=== PATIENT | male | born 1955 | race African-American/Black ===

== ENCOUNTER 2017-03-25 17:17 | Emergency (ER) | payer OTHER ==
[2017-03-25 17:38] VITALS: BMI 32.8
--- NOTE | 2017-03-25 17:55 | PDOC ---
History of Present Illness - General Chief Complaint: Weakness Stated Complaint: FATIGUE, DIZZINESS Time Seen by Provider: 03/25/17 17:55 - History of Present Illness Initial Comments: 62 year old previously healthy male presenting with lightheadedness and nausea for the past two days. He worked an 18 hour shift three days prior and returned to work 12 hours later during which he felt lightheaded and nauseous. He admits to two episodes of non-bilious, non-bloody vomiting over this period of time. He denies fevers, chills, constipation, or other symptoms. He has also had some nasal congestion and cold like symptoms over the past week. He mhas also had a very poor appetite for fluids and solids over the past few days because of his nausea. His symptoms actually improved today but his sister wanted him to come in for evaluation regardless. He denies a vertigo like symptoms but only admits to lightheadedness and unsteadiness without syncope, chest pain, headache, palpitations, visual symptoms, or other concerning symptoms. 03/25/17 21:07 Past History - Past Medical History Allergies/Adverse Reactions: Allergies Allergy/AdvReac Type Severity Reaction Status Date / Time No Known Drug Allergies Allergy Verified 03/25/17 17:35 Home Medications: Ambulatory Orders NK [No Known Home Medication] 03/25/17 Anemia: No Asthma: No Cancer: No Cardiac Disorders: No CVA: No COPD: No CHF: No Dementia: No Diabetes: No GI Disorders: No Disorders: No HTN: Yes Hypercholesterolemia: No Liver Disease: No Seizures: No Thyroid Disease: No - Surgical History Abdominal Surgery: No Appendectomy: No Cardiac Surgery: No Lung Surgery: No Neurologic Surgery: No Orthopedic Surgery: Yes (LEFT ANH; ARTHROSCOPY) - Psycho/Social/Smoking Cessation Hx Suicidal Ideation: No Smoking History: Former smoker Have you smoked in the past 12 months: No Information on smoking cessation initiated: No Hx Alcohol Use: Yes (RARELY) Drug/Substance Use Hx: No Substance Use Type: Alcohol Hx Substance Use Treatment: No Review of Systems - Review of Systems Constitutional: No: Chills, Diaphoresis, Fever HEENTM: No: Blurred Vision, Recent change in vision, Double Vision Respiratory: No: Cough, Shortness of Breath Cardiac (ROS): No: Chest Pain, Edema ABD/GI: Yes: Nausea, Poor Appetite, Poor Fluid Intake, Vomiting. No: Diarrhea *Physical Exam - Vital Signs Last Vital Signs Temp Pulse Resp BP Pulse Ox 98.5 F 69 19 126/93 100 03/25/17 17:35 03/25/17 17:35 03/25/17 17:35 03/25/17 17:35 03/25/17 17:35 - Physical Exam General Appearance: Yes: Appropriately Dressed. No: Apparent Distress HEENT: positive: EOMI, CUAUHTEMOC, Normal ENT Inspection, Normal Voice Neck: positive: Trachea midline, Normal Thyroid, Supple. negative: Tender, Rigid Respiratory/Chest: positive: Lungs Clear, Normal Breath Sounds. negative: Chest Tender, Respiratory Distress Cardiovascular: positive: Regular Rhythm, Regular Rate, S1, S2. negative: Edema , JVD, Murmur Gastrointestinal/Abdominal: positive: Normal Bowel Sounds, Flat, Soft. negative : Tender, Organomegaly Musculoskeletal: positive: Normal Inspection Extremity: positive: Normal Inspection, Normal Range of Motion Integumentary: positive: Normal Color, Dry, Warm Neurologic: positive: Fully Oriented, Alert, Normal Mood/Affect, Motor Strength 11/20 ED Treatment Course - LABORATORY CBC & Chemistry Diagram: 03/25/17 19:45 03/25/17 19:45 Medical Decision Making - Medical Decision Making 62 year old male with no PMH presenting with lightheadedness in the setting of previous cold like symptoms, lack of sleep (due to work), and low PO intake for multiple days. There is low suspicion for any concerning pathology given recent illness and low PO intake provide a good explanation for his lightheadedness and quick resolution. He denies chest pain and he has no prominent cardiac risk factors. Will draw CBC and CMP to be cautious given his age. 03/25/17 21:23 Labs returned WNL with the exception of hyperglycemia to 144 and patient feeling better after 1 L PO water intake. Will discharge home with return precautions and follow up with PMD. *DC/Admit/Observation/Transfer Diagnosis at time of Disposition: Viral syndrome, Light-headed feeling - Discharge Dispostion Disposition: HOME - Referrals Referrals: Bryan Moreno MD [Primary Care Provider] - - Patient Instructions Printed Discharge Instructions: DI for Dizziness-Nonvertigo Additional Instructions: Please make an appointment to see your PMD next week. Please have your glucose repeated. Please drink plenty of water. Please return to the ED with any further concerns. - Post Discharge Activity Work/School Note: Back to Work
[2017-03-25 19:08] VITALS: BP 129/90; PULSE 71; TEMP 98.1
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
[2017-03-25] MEDS ORDERED: ONDANSETRON *ODT* 4 MG TABLET SL ONE (19:51)
[2017-03-25 19:55] LABS: BASOPHIL 1.1 % (0-2.0); EOSINOPHIL 2.8 % (0-4.5); MCH 28.8 pg (25.7-33.7); MCHC 33.2 g/dl (32.0-35.9); MEAN CELL VOLUME 86.9 fl (80-96); MEAN PLT VOLUME 9.8 fl (7.5-11.1); NEUTROPHILS 57.5 % (42.8-82.8); PLATELET COUNT 371 K/MM3 (134-434); WHITE BLOOD COUNT 8.3 K/mm3 (4.0-10.0)
[2017-03-25] MEDS ORDERED: ONDANSETRON *ODT* 4 MG TABLET ONE (20:00)
[2017-03-25 20:40] LABS: ALK PHOS 95 U/L (45-117); ANION GAP 8 (8-16); BILIRUBIN,TOTAL 0.5 mg/dL (0.2-1.0); CALCIUM 9.8 mg/dL (8.5-10.1); CO2 27 mmol/L (21-32); CREATININE 1.2 mg/dL (0.7-1.3); GLUCOSE,RANDOM 144 mg/dL (74-106); SGOT/AST 43 U/L (15-37); SGPT/ALT 49 U/L (12-78); TOT PROT 8.1 g/dl (6.4-8.2)
[2017-03-25 22:42] LABS: PLATELET COMMENT2 NO CLUMPING NOTED
--- NOTE | 2017-03-26 09:01 | EKG ---
Test Reason : Blood Pressure : / mmHG Vent. Rate : 060 BPM Atrial Rate : 060 BPM P-R Int : 214 ms QRS Dur : 086 ms QT Int : 418 ms P-R-T Axes : 058 033 050 degrees QTc Int : 418 ms SINUS RHYTHM WITH 1ST DEGREE A-V BLOCK WHEN COMPARED WITH ECG OF 12-FEB-2015 09:58, NO SIGNIFICANT CHANGE WAS FOUND Confirmed by RAUL POTTS MD ([id number]) on 03/26/2017 9:00:47 AM Referred By: Confirmed By:RAUL POTTS MD
== END 2017-03-25 21:16 | disposition home or self-care (01) ==
LOC: JER 17:17
DX: R42 Dizziness and giddiness (principal); I10 Essential (primary) hypertension; R73.9 Hyperglycemia, unspecified; Z87.891 Personal history of nicotine dependence
CPT/HCPCS: 36415; 80053; 85025; 93005; 93010; 99284-25

== ENCOUNTER 2017-03-29 13:26 | Emergency (ER) | payer OTHER ==
[2017-03-29 13:40] VITALS: TEMP 98.3; BMI 32.8
--- NOTE | 2017-03-29 15:29 | PDOC ---
History of Present Illness - General History Source: Patient Exam Limitations: No Limitations <Izabela Berger - Last Filed: 03/29/17 15:26> - General History Source: Patient Exam Limitations: No Limitations - History of Present Illness Initial Comments: 03/29/17 16:01 62 yo M with no PMHx who presents to the ED with headache and vertiginous like symptoms. Patient states his lightheadedness worsens when standing and walking. Patient reports multiple waves of nausea and episodes of vomiting (nonbilious, nonbloody). Patient was seen in the ED 4 days ago for the same complaints however was discharged after his symptoms resolved. <Karlene Jean Baptiste - Last Filed: 03/29/17 16:04> - General Chief Complaint: Lightheaded Stated Complaint: NAUSEA/VOMITING, REVISIT Past History - Past Medical History Anemia: No Asthma: No Cancer: No Cardiac Disorders: No CVA: No COPD: No CHF: No Dementia: No Diabetes: No GI Disorders: No Disorders: No HTN: Yes Hypercholesterolemia: No Liver Disease: No Seizures: No Thyroid Disease: No - Surgical History Abdominal Surgery: No Appendectomy: No Cardiac Surgery: No Lung Surgery: No Neurologic Surgery: No Orthopedic Surgery: Yes (LEFT ANH; ARTHROSCOPY) - Psycho/Social/Smoking Cessation Hx Suicidal Ideation: No Smoking History: Never smoked Have you smoked in the past 12 months: No Information on smoking cessation initiated: No Hx Alcohol Use: Yes (RARELY) Drug/Substance Use Hx: No Substance Use Type: Alcohol Hx Substance Use Treatment: No <Izabela Berger - Last Filed: 03/29/17 15:26> <Karlene Jean Baptiste - Last Filed: 03/29/17 16:04> - Past Medical History Allergies/Adverse Reactions: Allergies Allergy/AdvReac Type Severity Reaction Status Date / Time No Known Drug Allergies Allergy Verified 03/29/17 13:40 Home Medications: Ambulatory Orders NK [No Known Home Medication] 03/25/17 Review of Systems - Review of Systems Able to Perform ROS?: Yes Comments:: 03/29/17 16:01 GENERAL/CONSTITUTIONAL: No fever or chills. No weakness. HEAD, EYES, EARS, NOSE AND THROAT: No change in vision. No ear pain or discharge. No sore throat. GASTROINTESTINAL: + nausea, vomiting. No diarrhea or constipation. GENITOURINARY: No dysuria, frequency, or change in urination. CARDIOVASCULAR: No chest pain or shortness of breath. RESPIRATORY: No cough, wheezing, or hemoptysis. MUSCULOSKELETAL: No joint or muscle swelling or pain. No neck or back pain. SKIN: No rash NEUROLOGIC: +vertigo. + headache. No loss of consciousness, or change in strength/sensation. ENDOCRINE: No increased thirst. No abnormal weight change. HEMATOLOGIC/LYMPHATIC: No anemia, easy bleeding, or history of blood clots. ALLERGIC/IMMUNOLOGIC: No hives or skin allergy. <Karlene Jean Baptiste - Last Filed: 03/29/17 16:04> *Physical Exam - Vital Signs Last Vital Signs Temp Pulse Resp BP Pulse Ox 98.3 F 63 18 131/93 100 03/29/17 13:32 03/29/17 13:32 03/29/17 13:32 03/29/17 13:32 03/29/17 13:32 <Izabela Berger - Last Filed: 03/29/17 15:26> - Vital Signs Last Vital Signs Temp Pulse Resp BP Pulse Ox 98.3 F 63 18 131/93 100 03/29/17 13:32 03/29/17 13:32 03/29/17 13:32 03/29/17 13:32 03/29/17 13:32 - Physical Exam Comments: 03/29/17 16:02 GENERAL: Awake, alert, and fully oriented, in no acute distress HEAD: No signs of trauma EYES: PERRLA, EOMI, sclera anicteric, conjunctiva clear ENT: Auricles normal inspection, nares patent, Moist mucosa NECK: Normal ROM, supple, no lymphadenopathy, JVD, or masses LUNGS: Breath sounds equal, clear to auscultation bilaterally. No wheezes, and no crackles HEART: Regular rate and rhythm, normal S1 and S2, no murmurs, rubs or gallops ABDOMEN: Soft, nontender, normoactive bowel sounds. No guarding, no rebound. No masses EXTREMITIES: Normal range of motion, no edema. No clubbing or cyanosis. No cords, erythema, or tenderness NEUROLOGICAL: Alert, awake, appropriate. Cranial nerves 2-12 intact. No deficits to light touch and temperature in face, upper extremities and lower extremities. No motor deficits in the in face, upper extremities and lower extremities. Normoreflexic in the upper and lower extremities. Normal speech. Toes are downgoing bilaterally. Gait is unsteady. +Angel-hallpike o the L with horizontal nystagmus. SKIN: Warm, Dry, normal turgor, no rashes or lesions noted. <Karlene Jean Baptiste - Last Filed: 03/29/17 16:04> Medical Decision Making - Medical Decision Making 03/29/17 15:27 62 yo male with no mhx here wtih c/o headache. and vertigo. started 4 days ago. does feel lightheaded with some vertigo component. feels unsteady, has had assoc n/v today. no diarreha. no tinnitus. no sick contacts. no travel. was seen in ed 4 days go, had routine blood work checked and dc home. no focal weakness. no speech changes. on exam awake alert lungs clear heart rrr nomrg. abd soft nontender. nuero alert oriented x 3 5/5 all four ext. finger to nose normal gait normal neg romberg. pos angel hallpike to left horiz nystagmus. plan vertigo. will tx with meclizine, zofran fluids. ct head. reassess <Izabela Berger - Last Filed: 03/29/17 15:26> *DC/Admit/Observation/Transfer <Izabela Berger - Last Filed: 03/29/17 15:26> - Attestations Scribe Attestion: 03/29/17 16:03 Documentation prepared by Karlene Jean Baptiste, acting as emergency medical technician basic for Izabela Berger MD <Karlene Jean Baptiste - Last Filed: 03/29/17 16:04> - Referrals Referrals: Bryan Moreno MD [Primary Care Provider] -
[2017-03-29] MEDS ORDERED: MECLIZINE HCL 25 MG TABLET (FP) PO ONE (15:45)
[2017-03-29] MEDS ORDERED: ONDANSETRON 4 MG/2 ML VIAL IVPUSH ONE (15:45)
[2017-03-29] MEDS ORDERED: SODIUM CHLORIDE 0.9% 1000 ML INFUS.BAG IV ONE (15:46)
[2017-03-29] MEDS ORDERED: ONDANSETRON 4 MG/2 ML VIAL ONE (15:53)
[2017-03-29] MEDS ORDERED: MECLIZINE HCL 25 MG TABLET (FP) ONE (15:53)
[2017-03-29 16:38] LABS: BASOPHIL 1.4 % (0-2.0); EOSINOPHIL 0.9 % (0-4.5); MCH 29.3 pg (25.7-33.7); MCHC 33.7 g/dl (32.0-35.9); MEAN CELL VOLUME 86.8 fl (80-96); MEAN PLT VOLUME 9.7 fl (7.5-11.1); NEUTROPHILS 65.6 % (42.8-82.8); RDW 12.9 % (11.9-15.9); WHITE BLOOD COUNT 7.3 K/mm3 (4.0-10.0)
[2017-03-29 17:19] LABS: ALK PHOS 89 U/L (45-117); BILIRUBIN,TOTAL 0.8 mg/dL (0.2-1.0); CREATININE 1.2 mg/dL (0.7-1.3); SGPT/ALT 52 U/L (12-78); TOT PROT 8.4 g/dl (6.4-8.2)
[2017-03-29] MEDS ORDERED: METOCLOPRAMIDE HCL INJECTION 10 MG/2 ML VIAL ONE (17:37)
[2017-03-29] MEDS ORDERED: METOCLOPRAMIDE HCL INJECTION 10 MG/2 ML VIAL IVPB ONE (17:47)
[2017-03-29 18:07] VITALS: BP 128/70; PULSE 54
[2017-03-29 18:10] LABS: PLATELET COUNT 361 K/MM3 (134-434)
[2017-03-29 18:13] LABS: ALBUMIN 4.2 g/dl (3.4-5.0); ANION GAP 11 (8-16); CALCIUM 10.5 mg/dL (8.5-10.1); CO2 25 mmol/L (21-32); GLUCOSE,RANDOM 105 mg/dL (74-106); SGOT/AST 40 U/L (15-37)
--- NOTE | 2017-03-29 19:41 | PDOC ---
*Physical Exam - Vital Signs Last Vital Signs Temp Pulse Resp BP Pulse Ox 98.3 F 54 L 18 128/70 98 03/29/17 13:32 03/29/17 17:32 03/29/17 13:32 03/29/17 17:32 03/29/17 17:32 ED Treatment Course - LABORATORY CBC & Chemistry Diagram: 03/29/17 16:12 03/29/17 16:12 - ADDITIONAL ORDERS Additional order review: Laboratory Results 03/29/17 16:12 Sodium 136 Potassium 4.9 Chloride 100 Carbon Dioxide 25 Anion Gap 11 BUN 15 Creatinine 1.2 Creat Clearance w eGFR > 60 Random Glucose 105 D Calcium 10.5 H Total Bilirubin 0.8 D AST 40 H ALT 52 Alkaline Phosphatase 89 Total Protein 8.4 H Albumin 4.2 Lipase 112 03/29/17 16:12 RBC 5.56 MCV 86.8 MCHC 33.7 RDW 12.9 MPV 9.7 Neutrophils % 65.6 Lymphocytes % 23.7 D Monocytes % 8.4 Eosinophils % 0.9 Basophils % 1.4 - Medications Given in the ED: ED Medications Discontinued Medications Generic Name Dose Route Start Last Admin Trade Name Freq PRN Reason Stop Dose Admin Diphenhydramine HCl 25 mg 03/29/17 17:47 03/29/17 17:35 Benadryl Injection - IVPB 03/29/17 17:48 25 mg ONCE ONE Administration Meclizine HCl 25 mg 03/29/17 15:45 03/29/17 16:10 Antivert - PO 03/29/17 15:46 25 mg ONCE ONE Administration Metoclopramide HCl 10 mg 03/29/17 17:47 03/29/17 17:35 Reglan Injection - IVPB 03/29/17 17:48 10 mg ONCE ONE Administration Ondansetron HCl 4 mg 03/29/17 15:45 03/29/17 16:35 Zofran Injection IVPUSH 03/29/17 15:46 4 mg ONCE ONE Administration Sodium Chloride 1,000 ml 03/29/17 15:46 03/29/17 16:30 Normal Saline - IV 03/29/17 15:47 1,000 ml ONCE ONE Administration Medical Decision Making - Medical Decision Making 03/29/17 19:38 62-year-old male presents because of vertigo, associated with some nausea and vomiting. CAT scan of the head did not show any acute bleed, no edema, no mass. 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 Radiologist said it could be interpreted also as a nonspecifically gliosis and possibly a cystic lesion Patient is afebrile. Labs reviewed and they are unremarkable. He did receive IV fluids, Zofran and meclizine. He feels much better plan-Discharge home and we'll prescribe Zofran and meclizine to his pharmacy. I explained to him that he should follow-up with Dr. Moreno to further pursue an MRI to further explore the findings of the CT. He has no gross focal neural deficits at this time IMP vertigo *DC/Admit/Observation/Transfer Diagnosis at time of Disposition: Vertigo - Discharge Dispostion Disposition: HOME Condition at time of disposition: Stable - Prescriptions Prescriptions: Meclizine HCl [Antivert -] 25 mg PO QID PRN #21 tablet PRN Reason: Vertigo Ondansetron [Zofran Odt -] 4 mg SL TID PRN #12 od.tablet PRN Reason: Nausea And/Or Vomiting - Referrals Referrals: Bryan Moreno MD [Primary Care Provider] - - Patient Instructions Printed Discharge Instructions: DI for Vertigo Additional Instructions: please picking supervisor your medications at your pharmacy Followup with Dr Moreno Return for any worsening symptoms - Post Discharge Activity
== END 2017-03-29 20:29 | disposition home or self-care (01) ==
LOC: JER 13:26
PROC: 3E033GC Introduction of Other Therapeutic Substance into Peripheral Vein, Percutaneous Approach (ICD-10-PCS; principal; 2017-03-29)
PROC: 3E033GC Introduction of Other Therapeutic Substance into Peripheral Vein, Percutaneous Approach (ICD-10-PCS; 2017-03-29)
PROC: 3E033GC Introduction of Other Therapeutic Substance into Peripheral Vein, Percutaneous Approach (ICD-10-PCS; 2017-03-29)
DX: R42 Dizziness and giddiness (principal)
CPT/HCPCS: 36415; 70450-TC; 80053; 83690; 85025; 99282-25

== ENCOUNTER 2017-11-25 15:31 | Emergency (ER) | payer OTHER ==
[2017-11-25 15:41] VITALS: BMI 30.9
--- NOTE | 2017-11-25 16:07 | PDOC ---
Attending Attestation - Resident Resident Name: Joe Duran - ED Attending Attestation I have performed the following: I have examined & evaluated the patient, The case was reviewed & discussed with the resident, I agree w/resident's findings & plan, Exceptions are as noted - Medical Decision Making 11/25/17 16:07 I, Dr. Maru Christianson, DO, attest that this document has been prepared under my direction and personally reviewed by me in its entirety. I further attest, that it accurately reflects all work, treatment, procedures and medical decision -making performed by me. 11/25/17 16:48 62yo male with 25lb wt loss and painless new onset of jaundice -outpt ultrasound shows 3cm mass in head of pancreas -tbili 7 on outpt labs -intra and extrahepatic ductal dilatation -resident discussed the case with Dr. Moreno office - [employer] who discussed the case with Dr. Clemente and Dr. Vo who is trying to arrange for direct admission to [facility] 11/25/17 17:01 the patient also received a call that from Dr. Moreno office that he needs to be transferred to [facility] pt agrees to the transfer 11/25/17 17:01 call placed to [facility] transfer center pt accepted in transfer and eval by Dr. Vo to the ED under Dr. Steven 11/25/17 17:10 Pt has signed the transfer consent <Maru Christianson - Last Filed: 11/25/17 17:10> - HPI HPI: 11/25/17 17:37 The patient is a 62 year old male with a significant past medical history of HTN who presents to the emergency department for evaluation of jaundice symptoms and mass on pancreas. The patient reports being seen at the [facility] and his PCP for evaluation of yellow colored eyes and 25lb weight loss. The patient was referred to the ED from Dr. Moreno's office for further evaluation of imaging report revealing enlarged liver, dilation of biliary ducts, and growth of pancreas obstructing flow. The patient reports associated symptom of diarrhea described as loose stool, nichols in color. The patient denies chest pain, epigastric pain, shortness of breath, headache, and dizziness. Denies fevers, chills, nausea, vomiting, and constipation. Denies dysuria, frequency, urgency, and hematuria. Allergies: NKDA Past surgical history: Patient denies. Social history: Reported alcohol use. No reported cigarette or drug use. PCP: Dr. Bryan Moreno ([phone]) - Physicial Exam PE: Constitutional: (+)Jaundiced. Awake, alert, oriented. No acute distress. Head: Normocephalic. Atraumatic Eyes: (+)Icterus on eyes, sclera icteric.PERRL. EOMI. ENT: Mucous membranes are moist and intact. Posterior pharynx without exudates or erythema. Uvula midline. Neck: Supple. Full ROM. No lymphadenopathy. Cardiovascular: Regular rate. Regular rhythm. S1, S2 regular. Distal pulses are 2+ and symmetric. Pulmonary/Chest: No evidence of respiratory distress. Clear to auscultation bilaterally No wheezing, rales or rhonchi. Abdominal: (+)Palpable liver under ribcage. Soft and non-distended. There is no tenderness. No rebound, guarding or rigidity. Good bowel sounds. Back: No CVA tenderness. Musculoskeletal: No edema. No cyanosis. No clubbing. Full range of motion in all extremities. Nocalf tenderness. Radial/pedal pulses are intact and 2+ bilaterally Skin: Skin is warm and dry. No petechiae. No purpura. Neurological: Alert and oriented to person, place, and time. Cranial nerves II -XII are grossly intact. Normal speech. Strength is grossly symmetric. No sensory deficits. Psychiatric: Good eye contact. Normal interaction, affect and behavior. - Medical Decision Making Case discussed with Dr. Moreno at 16:29. Case discussed with Dr. Susanna Vo at 16:55. Patient is being accepted to [facility] ED. <Rex Degroot - Last Filed: 11/25/17 17:39> Discharge Disposition - Transfer to Acute Care Facility Receiving Facility: [facility] Accepting Physician:: Dr. Steven in the ED and Dr. Vo from Hepatology <Maru Christianson - Last Filed: 11/25/17 17:10> <Rex Degroot - Last Filed: 11/25/17 17:39> - Diagnosis Mass of pancreas - Discharge Dispostion Disposition: TRANSFER ACUTE CARE/OTHER HOSP - Referrals Referrals: Bryan Moreno MD [Primary Care Provider] - - Patient Instructions - Post Discharge Activity Attestations - Attestations Documentation prepared by Rex Degroot, acting as dental assistant medical assistant for Maru Christianson DO. <Rex Degroot - Last Filed: 11/25/17 17:39>
--- NOTE | 2017-11-25 16:09 | PDOC ---
History of Present Illness - General Chief Complaint: Revisit, Lab Variance Stated Complaint: ADMIT, LAB VARIANCE (PCP SENT) Time Seen by Provider: 11/25/17 15:36 - History of Present Illness Initial Comments: Patient is a 62 year old male, with a significant past medical history of HTN, who presents to the emergency department with worsening jaundice, pruritus, and newly identified pancreatic mass on imaging. Pt was sent from Dr. Moreno's office due to above noted symptoms and newly identified pancreatic mass on abdominal U/S. Pt was sent to ED for GI work-up and potential transfer to [facility]. After pt left office, [employer] Bharat Anderson at Dr. Moreno's office spoke with Dr. Clemente (GI) who had seen the pt in the past and recommended direct transfer to [facility] for further work-up and likely surgical intervention. Pt with painless worsening jaundice and pruritus since early October, in addition to 25 weight loss and complete hair loss. Pt denies chest pain, shortness of breath, headache or dizziness. Denies fever, chills, nausea, vomiting and constipation. Denies dysuria, frequency, urgency and hematuria. Pt denies any recent alcohol use, trauma, sick contacts, travel, IVDU, hx of GI conditions. Endorses multiple weeks of loose, yellow stool, with no abdominal pain, melena, hematochezia. Allergies: none Past surgical history: L Valdemar of Knee Social History: Former smoker, drug use. Social drinker PMD: Dr. Moreno 11/25/17 16:04 Past History - Past Medical History Allergies/Adverse Reactions: Allergies Allergy/AdvReac Type Severity Reaction Status Date / Time No Known Drug Allergies Allergy Verified 11/25/17 15:40 Home Medications: Ambulatory Orders Meclizine HCl [Antivert -] 25 mg PO QID PRN #21 tablet 03/29/17 Ondansetron [Zofran Odt -] 4 mg SL TID PRN #12 od.tablet 03/29/17 Anemia: No Asthma: No Cancer: No Cardiac Disorders: No CVA: No COPD: No CHF: No Dementia: No Diabetes: No GI Disorders: No Disorders: No HTN: Yes Hypercholesterolemia: No Liver Disease: No Seizures: No Thyroid Disease: No - Surgical History Abdominal Surgery: No Appendectomy: No Cardiac Surgery: No Lung Surgery: No Neurologic Surgery: No Orthopedic Surgery: Yes (LEFT VALDEMAR; ARTHROSCOPY) - Suicide/Smoking/Psychosocial Hx Smoking History: Never smoked Have you smoked in the past 12 months: No Information on smoking cessation initiated: No Hx Alcohol Use: No Drug/Substance Use Hx: No Substance Use Type: Alcohol Hx Substance Use Treatment: No Review of Systems - Review of Systems Comments:: GENERAL/CONSTITUTIONAL: No fever or chills. No weakness. 25 lb weight loss over last month. HEAD, EYES, EARS, NOSE AND THROAT: No change in vision. No ear pain or discharge. No sore throat. CARDIOVASCULAR: No chest pain or shortness of breath RESPIRATORY: No cough, wheezing, or hemoptysis. GASTROINTESTINAL: +Diarrhea, pruritus, worsening jaundice. No nausea, vomiting, or constipation. GENITOURINARY: No dysuria, frequency, or change in urination. MUSCULOSKELETAL: No joint or muscle swelling or pain. No neck or back pain. SKIN: No rash NEUROLOGIC: No headache, vertigo, loss of consciousness, or change in strength/ sensation. ENDOCRINE: No increased thirst. No abnormal weight change HEMATOLOGIC/LYMPHATIC: No anemia, easy bleeding, or history of blood clots. ALLERGIC/IMMUNOLOGIC: No hives or skin allergy. 11/25/17 16:04 *Physical Exam - Vital Signs Last Vital Signs Temp Pulse Resp BP Pulse Ox 98.8 F 78 18 127/80 100 11/25/17 15:38 11/25/17 15:38 11/25/17 15:38 11/25/17 15:38 11/25/17 15:38 - Physical Exam Comments: GENERAL: Elderly man, Awake, alert, and fully oriented, in no acute distress HEAD: No signs of trauma, normocephalic, atraumatic EYES: Sclera icteric. PERRLA, EOMI, conjunctiva clear ENT: Palatal, sublingual jaundice. Auricles normal inspection, hearing grossly normal, nares patent, oropharynx clear without exudates. Moist mucosa NECK: Normal ROM, supple, no lymphadenopathy, JVD, or masses LUNGS: No distress, speaks full sentences, clear to auscultation bilaterally HEART: Regular rate and rhythm, normal S1 and S2, no murmurs, rubs or gallops, peripheral pulses normal and equal bilaterally. ABDOMEN: RUQ fullness, nontender to palpation. normoactive bowel sounds. No guarding, no rebound. negative fluid wave. No CVA tenderness. EXTREMITIES : Normal inspection, Normal range of motion, no edema. No clubbing or cyanosis. NEUROLOGICAL: Cranial nerves II through XII grossly intact. Normal speech, normal gait, no focal sensorimotor deficits SKIN: Warm, Dry, normal turgor, no rashes or lesions noted 11/25/17 16:04 Medical Decision Making - Medical Decision Making 62 yo man with one month of worsening jaundice, pruritus and worsening T Bili ( 4 in October, ~7 on repeat labs) in setting of newly diagnosed suspicious pancreatic mass. Spoke with Surgeon Dr. Vo at [facility] who has already been appraised of the case and will accept patient to surgical service for further evaluation and likely surgical intervention. Call placed to [facility] ED, Dr. Christianson spoke with ED attending Dr. Steven who agreed to ED to ED transfer. Pt will be transfer to [facility] this PM, will only require BLS in transit. VSS, no pain , ready for transfer currently awaiting transportation. 11/25/17 17:35 *DC/Admit/Observation/Transfer Diagnosis at time of Disposition: Mass of pancreas - Discharge Dispostion Disposition: TRANSFER ACUTE CARE/OTHER HOSP Condition at time of disposition: Good Decision to Admit order: No - Referrals Referrals: Bryan Moreno MD [Primary Care Provider] - 1 week - Patient Instructions - Post Discharge Activity - Transfer to Acute Care Facility Receiving Facility: [facility] comment: Pt is stable, in NAD. Admitting ED attending Dr. Steven aware, accepted pt for transfer. Awaiting transportation. Will be seen by Dr. Susanna Vo at [facility] for further evaluation of pancreatic mass and possible surgical intervention. 11/25/17 17:40
[2017-11-25 18:12] VITALS: BP 146/90; PULSE 65
[2017-11-25 18:26] VITALS: TEMP 98.5
== END 2017-11-25 18:15 | disposition short-term general hospital (02) ==
LOC: JER 15:31
DX: K86.89 Other specified diseases of pancreas (principal); R17 Unspecified jaundice; I10 Essential (primary) hypertension; L65.9 Nonscarring hair loss, unspecified; R63.4 Abnormal weight loss; Z68.31 Body mass index [BMI] 31.0-31.9, adult
CPT/HCPCS: 99283-25

== ENCOUNTER 2017-12-05 18:08 | Emergency (ER) | payer OTHER ==
[2017-12-05 18:20] VITALS: BMI 31.4
[2017-12-05] MEDS ORDERED: morphine SULFATE 4 MG/ML VIAL ONE ×2 (18:47→22:39)
[2017-12-05] MEDS ORDERED: ONDANSETRON 4 MG/2 ML VIAL ONE (18:47)
[2017-12-05] MEDS ORDERED: morphine CARPU-JECT 4 MG/1 ML DISP.SYRIN IVPUSH ONE ×2 (19:03→22:21)
[2017-12-05] MEDS ORDERED: ONDANSETRON 4 MG/2 ML VIAL IVPUSH ONE (19:04)
[2017-12-05 19:27] LABS: BASO % 0.4 % (0-2.0); EOS % 0.2 % (0-4.5); LYMPH % 5.6 % (8-40); MCH 28.2 pg (25.7-33.7); MCHC 32.5 g/dl (32.0-35.9); MEAN CELL VOLUME 86.9 fl (80-96); MEAN PLT VOLUME 11.1 fl (7.5-11.1); NEUT % 88.8 % (42.8-82.8); RDW 13.4 % (11.9-15.9); WHITE BLOOD COUNT 16.4 K/mm3 (4.0-10.0)
[2017-12-05 19:39] LABS: INR 1.3 (0.82-1.09); PROTHROMBIN TIME (PATIENT) 14.7 SEC (9.7-13.0)
[2017-12-05 19:41] LABS: ACTIVATED PTT 36.9 SECONDS (26.9-34.4)
[2017-12-05 19:44] LABS: PLATELET COUNT 554 K/MM3 (134-434); PLATELET ESTIMATE INCREASED
[2017-12-05] MEDS ORDERED: PIPERACILLIN/TAZOB 4.5 GM 4.5 GM in DEXTROSE 5%-WATER - 100 ML IVPB ONE (19:46)
--- NOTE | 2017-12-05 19:46 | PDOC ---
History of Present Illness <Sole Kincaid - Last Filed: 12/05/17 20:26> - History of Present Illness Initial Comments: 12/05/17 20:59 The patient is a 62 year old male, with a significant past medical history of HTN and a pancreatic mass (head of the pancreas), who presents to the emergency department with, right upper quadrant pain. He describes his pain as nonradiating and ranking a 10/10. He reports nausea with associated two episodes of self-induced emesis. He reports taking Ibuprofen yesterday, without relief. The patient reports having a CBD stent placed 10 days ago (04/2018) at [facility] by Dr. Susanna Vo. He denies any recent fevers, chills, headache or dizziness. He denies any recent chest pain or shortness of breath. He denies any recent dysuria, frequency, urgency or hematuria. Allergies: NKA Past surgical history: CBD stent placement (12/05/2017). Social History: Former smoker. Social drinker. Denies recreational drug use. Primary Care Physician: Dr. Bryan Moreno <Sri Beckett - Last Filed: 12/06/17 00:58> - General Chief Complaint: Pain Stated Complaint: STOMACH PAIN Time Seen by Provider: 12/05/17 19:24 Past History <Sole Kincaid - Last Filed: 12/05/17 20:26> - Past Medical History Anemia: No Asthma: No Cancer: No Cardiac Disorders: No CVA: No COPD: No CHF: No Dementia: No Diabetes: No GI Disorders: Yes (enlarged liver) Disorders: No HTN: Yes Hypercholesterolemia: No Liver Disease: No Seizures: No Thyroid Disease: No - Surgical History Abdominal Surgery: No Appendectomy: No Cardiac Surgery: No Lung Surgery: No Neurologic Surgery: No Orthopedic Surgery: Yes (LEFT ANH; ARTHROSCOPY) - Suicide/Smoking/Psychosocial Hx Smoking History: Former smoker Have you smoked in the past 12 months: No Information on smoking cessation initiated: No Hx Alcohol Use: No Drug/Substance Use Hx: No Substance Use Type: Alcohol Hx Substance Use Treatment: No <Sri Beckett - Last Filed: 12/06/17 00:58> - Past Medical History Allergies/Adverse Reactions: Allergies Allergy/AdvReac Type Severity Reaction Status Date / Time No Known Drug Allergies Allergy Verified 12/05/17 18:16 Home Medications: Ambulatory Orders Meclizine HCl [Antivert -] 25 mg PO QID PRN #21 tablet 03/29/17 Ondansetron [Zofran Odt -] 4 mg SL TID PRN #12 od.tablet 03/29/17 Review of Systems - Review of Systems Comments:: 12/05/17 20:59 GENERAL/CONSTITUTIONAL: No fever or chills. No weakness. HEAD, EYES, EARS, NOSE AND THROAT: No change in vision. No ear pain or discharge. No sore throat. +GASTROINTESTINAL: Nausea. Vomiting. No diarrhea or constipation. +ABDOMEN: RUQ pain. GENITOURINARY: No dysuria, frequency, or change in urination. CARDIOVASCULAR: No chest pain or shortness of breath. RESPIRATORY: No cough, wheezing, or hemoptysis. MUSCULOSKELETAL: No joint or muscle swelling or pain. No neck or back pain. SKIN: No rash NEUROLOGIC: No headache, vertigo, loss of consciousness, or change in strength/ sensation. ENDOCRINE: No increased thirst. No abnormal weight change. HEMATOLOGIC/LYMPHATIC: No anemia, easy bleeding, or history of blood clots. ALLERGIC/IMMUNOLOGIC: No hives or skin allergy. <Sri Beckett - Last Filed: 12/06/17 00:58> *Physical Exam - Vital Signs Last Vital Signs Temp Pulse Resp BP Pulse Ox 98.7 F 83 20 117/83 97 12/05/17 18:16 12/05/17 18:16 12/05/17 18:16 12/05/17 18:16 12/05/17 18:16 <Sole Kincaid - Last Filed: 12/05/17 20:26> - Vital Signs Last Vital Signs Temp Pulse Resp BP Pulse Ox 98.7 F 83 20 117/83 97 12/05/17 18:16 12/05/17 18:16 12/05/17 18:16 12/05/17 18:16 12/05/17 18:16 - Physical Exam Comments: 12/05/17 20:59 GENERAL: Awake, alert, and fully oriented, in no acute distress HEAD: No signs of trauma EYES: PERRLA, EOMI, +scleral icterus, conjunctiva clear ENT: Auricles normal inspection, hearing grossly normal, nares patent, oropharynx clear without exudates. Moist mucosa NECK: Normal ROM, supple, no lymphadenopathy, JVD, or masses LUNGS: Breath sounds equal, clear to auscultation bilaterally. No wheezes, and no crackles HEART: Regular rate and rhythm, normal S1 and S2, no murmurs, rubs or gallops ABDOMEN: Soft, RUQ ttp, normoactive bowel sounds. No guarding, no rebound. No masses EXTREMITIES: Normal range of motion, no edema. No clubbing or cyanosis. No cords, erythema, or tenderness NEUROLOGICAL: Normal speech, cranial nerves intact, negative pronator drift, 5/ 5 strength in all 4 extremities, normal sensation to light touch in all 4 extremities, normal cerebellar exam, normal gait, normal reflexes and tone SKIN: Warm, Dry, normal turgor, no rashes or lesions noted. <Leora Becketta - Last Filed: 12/06/17 00:58> ED Treatment Course - LABORATORY CBC & Chemistry Diagram: 12/05/17 19:19 12/05/17 19:19 - ADDITIONAL ORDERS Additional order review: Laboratory Results 12/05/17 12/05/17 12/05/17 19:19 19:19 19:19 PT with INR 14.70 H INR 1.30 H PTT (Actin FS) 36.9 H Sodium 136 Potassium 4.8 Chloride 101 Carbon Dioxide 25 Anion Gap 10 BUN 12 Creatinine 1.1 Creat Clearance w eGFR > 60 Random Glucose 142 H D Lactic Acid 2.7 H* Calcium 10.2 H Total Bilirubin 4.9 H D AST 161 H D ALT 145 H D Alkaline Phosphatase 239 H D Creatine Kinase Creatine Kinase Index CK-MB (CK-2) Troponin I Total Protein 8.3 H Albumin 3.6 Lipase 338 12/05/17 19:19 PT with INR INR PTT (Actin FS) Sodium Potassium Chloride Carbon Dioxide Anion Gap BUN Creatinine Creat Clearance w eGFR Random Glucose Lactic Acid Calcium Total Bilirubin AST ALT Alkaline Phosphatase Creatine Kinase 263 Creatine Kinase Index 0.9 CK-MB (CK-2) 2.376 Troponin I < 0.02 Total Protein Albumin Lipase 12/05/17 19:19 RBC 4.60 MCV 86.9 MCHC 32.5 RDW 13.4 MPV 11.1 D Neutrophils % 88.8 H D Lymphocytes % 5.6 L D Monocytes % 5.0 Eosinophils % 0.2 Basophils % 0.4 - Medications Given in the ED: ED Medications Discontinued Medications Generic Name Dose Route Start Last Admin Trade Name Freq PRN Reason Stop Dose Admin Piperacillin Sod/Tazobactam 100 mls @ 200 mls/hr 12/05/17 19:46 12/05/17 20: 09 Sod 4.5 gm/ Dextrose IVPB 12/05/17 20:15 200 mls/hr ONCE ONE Administration Protocol Morphine Sulfate 4 mg 12/05/17 19:03 12/05/17 19:09 Morphine Injection - IVPUSH 12/05/17 19:04 4 mg ONCE ONE Administration Ondansetron HCl 4 mg 12/05/17 19:04 12/05/17 19:09 Zofran Injection IVPUSH 12/05/17 19:05 4 mg ONCE ONE Administration <Sole Kincaid - Last Filed: 12/05/17 20:26> - LABORATORY CBC & Chemistry Diagram: 12/05/17 19:19 12/05/17 19:19 - ADDITIONAL ORDERS Additional order review: 12/05/17 19:19 RBC 4.60 MCV 86.9 MCHC 32.5 RDW 13.4 MPV 11.1 D Neutrophils % 88.8 H D Lymphocytes % 5.6 L D Monocytes % 5.0 Eosinophils % 0.2 Basophils % 0.4 - Medications Given in the ED: ED Medications Discontinued Medications Generic Name Dose Route Start Last Admin Trade Name Freq PRN Reason Stop Dose Admin Morphine Sulfate 4 mg 12/05/17 19:03 12/05/17 19:09 Morphine Injection - IVPUSH 12/05/17 19:04 4 mg ONCE ONE Administration Ondansetron HCl 4 mg 12/05/17 19:04 12/05/17 19:09 Zofran Injection IVPUSH 12/05/17 19:05 4 mg ONCE ONE Administration <Sri Beckett - Last Filed: 12/06/17 00:58> Medical Decision Making - Medical Decision Making 12/05/17 8:00pm Call placed to Dr. Susanna Vo, patient's surgeon, case was discussed. Dr. Susanna Vo- Surgeon- [facility] <Sole Kincaid - Last Filed: 12/05/17 20:26> - Medical Decision Making 12/05/17 20:04 62-year-old male with a recent diagnosis of mass of the pancreatic head status post stenting 10 days ago at [facility] presents emergency Department with 24 hours of right upper quadrant pain and vomiting. Vitals wnl. Exam with jaundice and RUQ ttp. DDx includes but not limited to stent migration vs cholangitis vs cholecystitis. Case discussed with Dr. Vo (surgery at [facility] who would like to transfer pt after CTAP) Plan: -labs -CTAP -UA -transfer 12/06/17 00:10 CTAP with possible cholecystitis and mild pancreatitis PT requiring multiple doses of morphine for pain control Work up discussed with Dr. Vo who has already set up the transfer with [facility] transfer center Pt updated, consents for transfer We called transfer center and confirmed that transfer was set up, they will arrange transport <Sri Beckett - Last Filed: 12/06/17 00:58> *DC/Admit/Observation/Transfer - Attestations Scribe Attestion: 12/05/17 20:28 Documentation prepared by Sole Kincaid, acting as medical record retrieval specialist for Sri Beckett MD. <Sole Kincaid - Last Filed: 12/05/17 20:26> <Sri Beckett - Last Filed: 12/06/17 00:58> Diagnosis at time of Disposition: Abdominal pain - Discharge Dispostion Disposition: TRANSFER ACUTE CARE/OTHER HOSP Condition at time of disposition: Stable - Referrals Referrals: Bryan Moreno MD [Primary Care Provider] - - Patient Instructions - Post Discharge Activity Forms/Work/School Notes: Back to Work
[2017-12-05 19:49] LABS: ALBUMIN 3.6 g/dl (3.4-5.0); ALK PHOS 239 U/L (45-117); ANION GAP 10 (8-16); BILIRUBIN,TOTAL 4.9 mg/dL (0.2-1.0); BLOOD UREA NITROGEN 12 mg/dL (7-18); CALCIUM 10.2 mg/dL (8.5-10.1); CHLORIDE 101 mmol/L (98-107); CO2 25 mmol/L (21-32); CREATININE 1.1 mg/dL (0.7-1.3); GLUCOSE,RANDOM 142 mg/dL (74-106); LIPASE 338 U/L (73-393); POTASSIUM 4.8 mmol/L (3.5-5.1); SGOT/AST 161 U/L (15-37); SGPT/ALT 145 U/L (12-78); SODIUM 136 mmol/L (136-145); TOT PROT 8.3 g/dl (6.4-8.2)
[2017-12-05] MEDS ORDERED: SODIUM CHLORIDE 1,000 ML IV STA (19:52)
[2017-12-05] MEDS ORDERED: PIPERACILLIN/TAZOB 4.5 GM 4.5 GM/100 ML BAG IVPB ONE (20:01)
[2017-12-06] MEDS ORDERED: morphine SULFATE 4 MG/ML VIAL ONE
[2017-12-06] MEDS ORDERED: morphine CARPU-JECT 4 MG/1 ML DISP.SYRIN IVPUSH ONE (00:03)
[2017-12-06 00:38] VITALS: PULSE 108
[2017-12-06 00:45] VITALS: BP 130/80; TEMP 100.8
--- NOTE | 2017-12-06 23:48 | EKG ---
Test Reason : Blood Pressure : / mmHG Vent. Rate : 074 BPM Atrial Rate : 074 BPM P-R Int : 184 ms QRS Dur : 084 ms QT Int : 404 ms P-R-T Axes : 066 053 064 degrees QTc Int : 448 ms NORMAL SINUS RHYTHM NORMAL ECG WHEN COMPARED WITH ECG OF 25-MAR-2017 18:16, NO SIGNIFICANT CHANGE WAS FOUND Confirmed by LETICIA VUONG MD ([id number]) on 12/06/2017 11:48:01 PM Referred By: Confirmed By:LETICIA VUONG MD
== END 2017-12-06 01:05 | disposition short-term general hospital (02) ==
LOC: JER 18:08
PROC: 3E0337Z Introduction of Electrolytic and Water Balance Substance into Peripheral Vein, Percutaneous Approach (ICD-10-PCS; principal; 2017-12-05)
PROC: 3E03329 Introduction of Other Anti-infective into Peripheral Vein, Percutaneous Approach (ICD-10-PCS; 2017-12-05)
PROC: 3E033GC Introduction of Other Therapeutic Substance into Peripheral Vein, Percutaneous Approach (ICD-10-PCS; 2017-12-05)
PROC: 3E033NZ Introduction of Analgesics, Hypnotics, Sedatives into Peripheral Vein, Percutaneous Approach (ICD-10-PCS; 2017-12-05)
PROC: 3E033NZ Introduction of Analgesics, Hypnotics, Sedatives into Peripheral Vein, Percutaneous Approach (ICD-10-PCS; 2017-12-05)
PROC: 3E033NZ Introduction of Analgesics, Hypnotics, Sedatives into Peripheral Vein, Percutaneous Approach (ICD-10-PCS; 2017-12-05)
DX: R10.11 Right upper quadrant pain (principal); K86.89 Other specified diseases of pancreas; I10 Essential (primary) hypertension
CPT/HCPCS: 36415; 74177-TC; 80053; 82550; 82553; 83605; 83690; 84484; 85025; 85610; 85730; 93005; 93010; 99283-25; J7030

== ENCOUNTER 2019-03-22 21:03 | Emergency (ER) | payer OTHER ==
[2019-03-22 21:43] VITALS: BMI 20.2
[2019-03-22] MEDS ORDERED: SODIUM CHLORIDE 0.9% 1000 ML INFUS.BAG IV ONE (21:51)
[2019-03-22] MEDS ORDERED: morphine CARPU-JECT 4 MG/1 ML DISP.SYRIN IVPUSH ONE (21:51)
[2019-03-22] MEDS ORDERED: ONDANSETRON 4 MG/2 ML VIAL IVPUSH ONE (22:02)
[2019-03-22] MEDS ORDERED: FAMOTIDINE 20 MG/50 ML IVPB 20 MG/50 ML MG IVPB ONE ×2 (22:02→22:14)
[2019-03-22] MEDS ORDERED: morphine SULFATE 4 MG/ML VIAL ONE (22:14)
[2019-03-22] MEDS ORDERED: ONDANSETRON 4 MG/2 ML VIAL ONE (22:14)
[2019-03-22 22:40] LABS: BASO % 0.5 % (0-2.0); EOS % 1.2 % (0-4.5); HEMATOCRIT 32.8 % (35.4-49); HEMOGLOBIN 10.6 GM/dL (11.7-16.9); LYMPH % 5.5 % (8-40); MCH 28.7 pg (25.7-33.7); MCHC 32.3 g/dl (32.0-35.9); MEAN CELL VOLUME 88.9 fl (80-96); MEAN PLT VOLUME 8.7 fl (7.5-11.1); MONO % 12.5 % (3.8-10.2); NEUT % 80.3 % (42.8-82.8); PLATELET COUNT 251 K/MM3 (134-434); RBC 3.69 M/mm3 (4.00-5.60); RDW 16.5 % (11.9-15.9); WHITE BLOOD COUNT 7.5 K/mm3 (4.0-10.0)
[2019-03-22 22:58] LABS: INR 1.53 (0.83-1.09); PROTHROMBIN TIME (PATIENT) 18.1 SEC (9.7-13.0)
[2019-03-22 23:01] LABS: MAGNESIUM 2.1 mg/dL (1.8-2.4)
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
[2019-03-22 23:13] LABS: BLOOD UREA NITROGEN 13.8 mg/dL (7-18); CO2 28 mmol/L (21-32); CREATININE 0.8 mg/dL (0.55-1.3); GLUCOSE,RANDOM 112 mg/dL (74-106); SODIUM 128 mmol/L (136-145)
[2019-03-22 23:14] LABS: ALBUMIN 1.7 g/dl (3.4-5.0); ALK PHOS 545 U/L (45-117); BILIRUBIN,TOTAL 1.8 mg/dL (0.2-1); CALCIUM 8.5 mg/dL (8.5-10.1); SGPT/ALT 20 U/L (13-61); TOT PROT 6.9 g/dl (6.4-8.2)
[2019-03-22] MEDS ORDERED: CALCIUM GLUCONATE 10% - 1,000 MG/10 ML VIAL IVPUSH ONE (23:19)
[2019-03-22] MEDS ORDERED: ALBUTEROL SO4 0.5 % INH SOLN 2.5 MG/0.5 ML VIAL.NEB. NEB ONE (23:19)
[2019-03-22] MEDS ORDERED: INSULIN REGULAR HUMAN 100 UNITS/ML *VIAL IVPUSH ONE (23:19)
[2019-03-22] MEDS ORDERED: DEXTROSE 50%-WATER - 25 GM/50 ML VIAL IVPUSH ONE (23:20)
[2019-03-22] MEDS ORDERED: SODIUM ZIRCONIUM CYCLOSILICATE (LOKELMA) 5 GM PACKET PO ONE (23:21)
[2019-03-22] MEDS ORDERED: ALBUTEROL SO4 0.083% IH SOL 2.5 MG/3 ML VIAL.NEB. NEB ONE (23:24)
[2019-03-22] MEDS ORDERED: CALCIUM GLUCONATE 10% - 1,000 MG/10 ML VIAL ONE (23:24)
[2019-03-22] MEDS ORDERED: DEXTROSE 50%-WATER 25 GM/50 ML DISP.SYRIN ONE (23:25)
[2019-03-22 23:37] LABS: ANION GAP 4 MMOL/L (8-16); CHLORIDE 96 mmol/L (98-107); SGOT/AST 54 U/L (15-37)
[2019-03-23 00:59] LABS: EPI CELLS 5.2 /HPF (0-5/HPF); HYALINE CASTS 61 /lpf (0-8); PH,URINE 5.5 (5.0-8.0); URINE APPEARANCE CLEAR; URINE BACTERIA 581.3 /hpf (NEGATIVE); URINE BILIRUBIN 1+ (NEGATIVE); URINE COLOR DK YELLOW; URINE GLUCOSE (UA) 2+ (NEGATIVE); URINE KETONE TRACE (NEGATIVE); URINE LEUK ESTERASE TRACE (NEGATIVE); URINE NITRITE POSITIVE (NEGATIVE); URINE PROTEIN 1+ (NEGATIVE); URINE RBC 2 /hpf (0-4); URINE WBC 9 /hpf (0-5)
[2019-03-23] MEDS ORDERED: SODIUM CHLORIDE 0.9% 1000 ML INFUS.BAG IV ONE (01:35)
[2019-03-23] MEDS ORDERED: CEFTRIAXONE 1 GM in DEXTROSE 5%-WATER - 100 ML IVPB ONE (01:43)
[2019-03-23] MEDS ORDERED: CEFTRIAXONE 1 GM/50 ML BAG ONE (01:50)
[2019-03-23 02:26] VITALS: TEMP 98.2
[2019-03-23 02:50] LABS: ALBUMIN 1.6 g/dl (3.4-5.0); BILIRUBIN,TOTAL 1.4 mg/dL (0.2-1); BLOOD UREA NITROGEN 14.1 mg/dL (7-18); CREATININE 0.8 mg/dL (0.55-1.3); POTASSIUM 5.1 mmol/L (3.5-5.1); TOT PROT 6.2 g/dl (6.4-8.2)
[2019-03-23 03:40] VITALS: BP 103/69; PULSE 76
--- NOTE | 2019-03-23 12:24 | EKG ---
Test Reason : Blood Pressure : / mmHG Vent. Rate : 072 BPM Atrial Rate : 072 BPM P-R Int : 170 ms QRS Dur : 074 ms QT Int : 456 ms P-R-T Axes : 072 058 071 degrees QTc Int : 499 ms NORMAL SINUS RHYTHM LOW VOLTAGE QRS SEPTAL INFARCT , AGE UNDETERMINED ABNORMAL ECG WHEN COMPARED WITH ECG OF 05-DEC-2017 20:20, SEPTAL INFARCT IS NOW PRESENT Confirmed by OXANA KRAUSE, LEVI ([id number]) on 03/23/2019 12:24:08 PM Referred By: Confirmed By:LEVI DAIGLE MD
== END 2019-03-23 03:50 | disposition short-term general hospital (02) ==
LOC: JER 21:03
PROC: 3E0F7GC Introduction of Other Therapeutic Substance into Respiratory Tract, Via Natural or Artificial Opening (ICD-10-PCS; principal; 2019-03-22)
PROC: 3E03329 Introduction of Other Anti-infective into Peripheral Vein, Percutaneous Approach (ICD-10-PCS; 2019-03-22)
PROC: 3E033GC Introduction of Other Therapeutic Substance into Peripheral Vein, Percutaneous Approach (ICD-10-PCS; 2019-03-22)
PROC: 3E033VG Introduction of Insulin into Peripheral Vein, Percutaneous Approach (ICD-10-PCS; 2019-03-22)
PROC: 3E0337Z Introduction of Electrolytic and Water Balance Substance into Peripheral Vein, Percutaneous Approach (ICD-10-PCS; 2019-03-22)
PROC: 3E033GC Introduction of Other Therapeutic Substance into Peripheral Vein, Percutaneous Approach (ICD-10-PCS; 2019-03-22)
PROC: 3E033NZ Introduction of Analgesics, Hypnotics, Sedatives into Peripheral Vein, Percutaneous Approach (ICD-10-PCS; 2019-03-22)
DX: N39.0 Urinary tract infection, site not specified (principal); E86.0 Dehydration; N17.9 Acute kidney failure, unspecified; Z85.07 Personal history of malignant neoplasm of pancreas; C78.7 Secondary malignant neoplasm of liver and intrahepatic bile duct; R63.4 Abnormal weight loss; Z68.20 Body mass index [BMI] 20.0-20.9, adult; I10 Essential (primary) hypertension; K59.00 Constipation, unspecified
CPT/HCPCS: 36415; 71045-TC-FY; 74176-TC; 80053; 81003; 82272; 82550; 83605; 83690; 83735; 84484; 85025; 85610; 85730; 87086; 87186; 93005; 93010; 99284-25; J7030